=== PATIENT | male | born 1960 | race Caucasian/White ===

== ENCOUNTER 2019-08-07 13:01 | Outpatient (CLI) | payer BC ==
[2019-08-07 13:53] LABS: #Basophils 0.1 thou/uL (0.0-0.2); #Eosinphils 0.2 thou/uL (0.0-0.7); #Lymphocytes 1.9 thou/uL (1.20-3.40); #Monocytes 0.8 thou/uL (0.11-0.59); #Neutrophils 5.1 thou/uL (1.40-6.50); %Basophils 0.7 % (0.0-1.0); %Eosinophils 2.5 % (0.0-10.0); %Lymphocytes 23.6 % (21.0-51.0); %Monocytes 9.6 % (0.0-10.0); %Neutrophils 63.5 % (42.0-75.0); Hemoglobin 16.1 g/dL (14.0-18.0); Mean Corpuscular HGB CONC 33.7 g/dL (32.0-36.0); Mean Corpuscular Hemoglobin 31.6 pg (27.0-31.0); Mean Corpuscular Volume 93.7 fL (78.0-98.0); Mean Platelet Volume 7.5 fL (7.4-10.4); Platelet Count 319 thou/uL (130-400); RBC Distribution Width 11.4 % (11.5-14.5); White Blood Cell (WBC) Count 8.1 thou/uL (4.8-10.8)
[2019-08-07 14:15] LABS: ALT (SGPT) 18 U/L (8-55); AST (SGOT) 18 U/L (5-34); Albumin 4.8 g/dL (3.5-5.0); Alkaline Phosphatase 67 U/L (40-150); Anion Gap 13 mmol/L (10-20); BUN (Urea Nitrogen) 14 mg/dL (8.4-25.7); Bilirubin, Total 0.7 mg/dL (0.2-1.2); Calc. Creatinine Clearance 0 mL/min (70-130); Calcium 9.6 mg/dL (7.8-10.44); Carbon Dioxide 24 mmol/L (22-29); Chloride 105 mmol/L (98-107); Estimated GFR-MDRD 83; Globulin 2.7 g/dL (2.4-3.5); Glucose 92 mg/dL (70-105); Potassium 4.3 mmol/L (3.5-5.1); Protein, Total 7.5 g/dL (6.0-8.3); Sodium 138 mmol/L (136-145)
== END 2019-08-07 13:02 | disposition home or self-care (01) ==
LOC: LABBT 13:01
PROVIDERS: ATTEND Internal Medicine Cardiovascular Disease
DX: Z01.812 Encounter for preprocedural laboratory examination (principal); R94.39 Abnormal result of other cardiovascular function study
CPT/HCPCS: 80053; 85025

== ENCOUNTER 2019-08-10 06:06 | Inpatient (IN) | payer BC ==
[2019-08-10 07:09] LABS: Cardiac Risk 3.4 (Less than 4.5)
[2019-08-10] MEDS ORDERED: Diazepam 5 MG TAB ONE (07:12)
[2019-08-10] MEDS ORDERED: Diazepam 5 MG TAB PO SCH (07:15)
[2019-08-10] MEDS ORDERED: Lidocaine 1% (PF) 30 ML VIAL ONE (07:53)
[2019-08-10] MEDS ORDERED: Midazolam HCl 2 mg/2 ml Vial ONE (08:16)
[2019-08-10] MEDS ORDERED: Fentanyl 100 MCG/2 ML VIAL ONE (08:16)
[2019-08-10] MEDS ORDERED: Metoprolol Tartrate 5 MG/5 ML VIAL ONE ×2 (08:40→08:55)
[2019-08-10] MEDS ORDERED: Nitroglycerin 2% Ointment 1 INCH/1 GM Packet ONE (09:20)
[2019-08-10] MEDS ORDERED: Acetaminophen/Codeine 30-300mg Tablet PO PRN ×2 (09:52)
[2019-08-10] MEDS ORDERED: Nitroglycerin 0.4 MG TAB (25 Tab Bottle) SL PRN (09:52)
[2019-08-10] MEDS ORDERED: Sodium Chloride 0.9% 1,000 ML IV SCH (10:00)
[2019-08-10] MEDS ORDERED: Aspirin Chewable 81 MG TAB PO SCH (10:15)
[2019-08-10] MEDS ORDERED: Famotidine 20 MG TAB PO PRN (10:20)
[2019-08-10] MEDS ORDERED: Acetaminophen 325 MG TAB PO PRN (10:22)
[2019-08-10] MEDS ORDERED: Nitroglycerin 2% Ointment 1 INCH/1 GM Packet TOP SCH (10:30)
[2019-08-10] MEDS ORDERED: Iopamidol 370 76% 100 ML VIAL ONE (10:33)
[2019-08-10 12:21] VITALS: BMI 27.6
[2019-08-10] MEDS: Nitroglycerin 2% Ointment 1 INCH/1 GM Packet TOP SCH ×2 (14:08→20:55)
[2019-08-10] MEDS ORDERED: Communication Order-Pharmacy FS SCH (16:58)
[2019-08-10] MEDS: Metoprolol Tartrate 25 MG TAB PO SCH (20:54)
[2019-08-10] MEDS ORDERED: Rosuvastatin 20 MG TAB PO SCH (21:00)
[2019-08-10] MEDS ORDERED: Enoxaparin Sodium 30 MG/0.3 ML SYRINGE SC SCH (22:00)
--- NOTE | 2019-08-10 23:03 | CON ---
DATE OF CONSULTATION: HISTORY OF PRESENT ILLNESS: This is a 58-year-old gentleman with no significant medical history, who had noticed occasionally some tightness in his chest when he was cutting the grass and then typically could rest for a few minutes and then go cut the grass again. This has occurred in the last 4-6 weeks. He has no history of hypertension or dyslipidemia. He had family history only of hypertension. He is a nonsmoker. He underwent stress testing which was abnormal by Dr. Trivedi and then catheterization today demonstrated an occluded LAD that really did not visualize through collaterals. He had a subtotal lesion in a bifurcating diagonal that was not very large. He had about an 80% proximal circumflex prior to a large 1st OM that had another 90% lesion and then some distal disease and then a small distal circumflex. His right coronary artery had about a 70% stenosis in its midportion and about 40% to 50% stenosis in the posterolateral system after the PDA takeoff. Left ventricular systolic function appeared to be normal. SOCIAL HISTORY: The patient works at one of the local [employer]. He is . MEDICATIONS: Include Zantac for indigestion, which is what he thought was bothering him. PHYSICAL EXAMINATION: GENERAL: He is about 5 feet 6 inches. His weight is stated at 185, recorded on the bed scale today at 190. His blood pressure is 130/70, his heart rate is about 85. NECK: No carotid bruits. LUNGS: Clear to auscultation. CARDIAC: Mild resting tachycardia. No murmurs. ABDOMEN: Soft and nontender. EXTREMITIES: He has palpable pedal pulses and radial pulses bilaterally with no peripheral edema and he has a good Khang test on his nondominant left arm. Potential grafting sites include the OM1 distally, the right coronary artery distally. The LAD, diagonal, and distal circumflex will be examined and if large enough, will be grafted. Informed consent has been obtained. Job ID: [id number]
[2019-08-11] MEDS ORDERED: CEFAZOLIN 2 GM in Premix Bag 1 BAG IVPB SCH (02:15)
[2019-08-11] MEDS: Nitroglycerin 2% Ointment 1 INCH/1 GM Packet TOP SCH (05:27)
[2019-08-11] MEDS: Metoprolol Tartrate 25 MG TAB PO SCH (05:30)
[2019-08-11] MEDS ORDERED: Fentanyl 250 MCG/5 ML VIAL ONE (06:18)
[2019-08-11] MEDS ORDERED: Midazolam HCl 5 mg/5 ml Vial ONE (06:19)
[2019-08-11] MEDS ORDERED: Albumin 5% 500 ML ONE (06:34)
[2019-08-11] MEDS ORDERED: Heparin 10,000 UNITS/1 ML VIAL 30,000 UNITS in Sodium Chloride 0.9% 1,000 ML FS SCH (06:45)
[2019-08-11] MEDS ORDERED: Midazolam HCl 2 mg/2 ml Vial ONE (07:15)
[2019-08-11] MEDS ORDERED: Heparin 10,000 UNITS/1 ML VIAL ONE (08:09)
[2019-08-11] MEDS ORDERED: PHENYLEPHRINE-NS 100 MCG/ML 10 ML SYRINGE ONE ×2 (08:45→22:36)
[2019-08-11] MEDS ORDERED: Phenylephrine HCL 10 MG/ML VIAL ONE (08:46)
[2019-08-11] MEDS ORDERED: Multivit, Therapeutic 1 TAB PO SCH (09:00)
[2019-08-11] MEDS ORDERED: Aspirin Chewable 81 MG TAB PO SCH (09:00)
[2019-08-11] MEDS ORDERED: Bisacodyl 10 MG SUPP PR PRN (12:24)
[2019-08-11] MEDS ORDERED: Guaifenesin DM 100-10/5 ML UDCUP PO PRN (12:24)
[2019-08-11] MEDS ORDERED: HYDROcodone/Acetaminophen 5/325 mg Tablet PO PRN (12:24)
[2019-08-11] MEDS ORDERED: Morphine 2 MG/ML SYRINGE SLOW IVP PRN (12:24)
[2019-08-11] MEDS ORDERED: Promethazine HCl 25 MG/ML VIAL IM PRN (12:24)
[2019-08-11] MEDS ORDERED: DOPamine 400 MG/D5W 250 ML 250 ML IVPB PRN (12:24)
[2019-08-11] MEDS ORDERED: Norepinephrine 8 MG/0.9% NS 250 ML IVPB PRN (12:24)
[2019-08-11] MEDS ORDERED: hydrALAZINE 20 MG/ML VIAL SLOW IVP PRN (12:24)
[2019-08-11] MEDS ORDERED: Mag-Al 1200 mg/1200 mg/30 ML UDCUP PO PRN (12:24)
[2019-08-11] MEDS ORDERED: Acetaminophen 325 MG TAB PO PRN (12:24)
[2019-08-11] MEDS ORDERED: Hetastarch 6% 500 ML 500 ML IVPB PRN (12:24)
[2019-08-11] MEDS ORDERED: Potassium Chloride 20 MEQ/100 ML PREMIX BAG IVPB PRN (12:24)
[2019-08-11] MEDS ORDERED: Post-Op Insulin Drip Protocol IVPB ONE (12:24)
[2019-08-11] MEDS ORDERED: niCARdipine 25 MG in Sodium Chloride 0.9% 250 ML 240 ML IVPB PRN (12:24)
[2019-08-11] MEDS ORDERED: Nitroglycerin 50 MG/250 ML BOT 250 ML IVPB PRN (12:24)
[2019-08-11] MEDS ORDERED: Bisacodyl 5 MG TAB PO PRN (12:24)
[2019-08-11] MEDS ORDERED: Magnesium 2 GM/50 ML 2 GM in Premix Bag 1 BAG IVPB SCH (12:30)
[2019-08-11] MEDS ORDERED: Insulin Regular 300 UNITS/3 ML VIAL SC PRN (12:36)
[2019-08-11] MEDS ORDERED: Dextrose 5% in Water 1,000 ML IV PRN (12:36)
[2019-08-11] MEDS ORDERED: Dextrose 50% Abboject 50 ML SYRINGE SLOW IVP PRN (12:36)
[2019-08-11] MEDS ORDERED: HUMULIN R 100 UNITS in Sodium Chloride 0.9% 100 ML IVPB SCH (12:36)
[2019-08-11] MEDS ORDERED: Insulin Regular 300 UNITS/3 ML VIAL ONE (12:48)
--- NOTE | 2019-08-11 13:00 | RAD ---
XR Chest 1 View Portable History: Open-heart surgery Comparison: None. Findings: Patient intubated endotracheal tube tip just at level of clavicles in good position. Right subclavian central venous catheter tip sits at the right atrium. Small effusions. Mediastinal drains are in good position. No significant pneumothorax. Impression: Uncomplicated postoperative appearance.
[2019-08-11 13:03] LABS: Hemoglobin 13.5 g/dL (14.0-18.0); Mean Corpuscular HGB CONC 33.8 g/dL (32.0-36.0); Mean Corpuscular Hemoglobin 31.1 pg (27.0-31.0); Mean Corpuscular Volume 92.3 fL (78.0-98.0); Mean Platelet Volume 7.9 fL (7.4-10.4); Platelet Count 222 thou/uL (130-400); RBC Distribution Width 11.3 % (11.5-14.5); Red Blood Cell (RBC) Count 4.33 mill/uL (4.70-6.10); White Blood Cell (WBC) Count 24.6 thou/uL (4.8-10.8)
[2019-08-11 13:04] LABS: INR-International Normal Ratio 1.2; PTT 26.9 SEC (22.9-36.1); Prothrombin Time 15.6 SEC (12.0-14.7)
[2019-08-11 13:14] LABS: Actual Bicarbonate (HCO3a) 21.8 mEq/L (22-28); Base Excess (BEa) -4.3 mEq/L (-2.0 to +3.0); CO2 Tension 43.7 mmHg (35.0-45.0); Calcium, Ionized 1.05 mmol/L (1.12-1.30); Carboxyhemoglobin (COHb) 1.1 gm% (0.0-3.0); Hemoglobin (Hb) 14.2 g/dL (14.0-18.0); O2 Tension (PaO2) 71.8 mmHg (80.0-100.0); Potassium - ABG Lab 3.64 mmol/L (3.70-5.30); pH, Arterial 7.32 (7.35-7.45)
[2019-08-11 13:15] LABS: ALV-art Gradient 230.075 (0-20); Puncture Site ALINE
[2019-08-11 13:17] LABS: Band 11 % (5-11); Eosinophils 2 % (0-10); Lymphocytes 9 % (21-51); MDiff Complete? YES; Monocytes 9 % (0-10); Neutrophil 69 % (42-75); RBC Morphology Normal
[2019-08-11] MEDS: Lactated Ringer's 1,000 ML IV SCH (13:19)
[2019-08-11 13:20] LABS: Anion Gap 9 mmol/L (10-20); BUN (Urea Nitrogen) 12 mg/dL (8.4-25.7); Calc. Creatinine Clearance 117 mL/min (70-130); Calcium 7.8 mg/dL (7.8-10.44); Carbon Dioxide 24 mmol/L (22-29); Chloride 109 mmol/L (98-107); Estimated GFR-MDRD Greater than 90; Glucose 142 mg/dL (70-105); Potassium 4.1 mmol/L (3.5-5.1); Sodium 138 mmol/L (136-145)
[2019-08-11] MEDS: Famotidine/PF 20 mg/2ml Vial SLOW IVP SCH (13:20)
[2019-08-11] MEDS: Ketorolac Tromethamine 30 MG/ML VIAL IVP SCH ×2 (13:20→23:48)
[2019-08-11] MEDS: Ondansetron PF 4 MG/2 ML Vial IVP PRN ×2 (13:21→17:22)
[2019-08-11] MEDS: Fentanyl 100 MCG/2 ML VIAL SLOW IVP PRN ×6 (13:26→23:46)
[2019-08-11] MEDS: CEFAZOLIN 2 GM in Premix Bag 1 BAG IVPB SCH ×2 (13:45→21:33)
--- NOTE | 2019-08-11 14:51 | OP ---
DATE OF PROCEDURE: 08/11/2019 PREOPERATIVE DIAGNOSIS: Coronary artery disease. POSTOPERATIVE DIAGNOSIS: Coronary artery disease. PROCEDURE PERFORMED: Coronary artery bypass graft x5, large left internal mammary artery to a 1.5 to 2 mm left anterior descending artery, good left radial to obtuse marginal 1 done distally where it was 0.5 mm, saphenous vein graft good quality to a 1.25 mm diagonal, probably not a redo target, a sequential graft to the PDA 1.5 and the posterolateral 1.5. Distal circumflex was too small to bypass. [employer]: Tom Casillas MD TRANSFUSION: None. DESCRIPTION OF PROCEDURE: After adequate anesthesia had been obtained, the patient was prepped and draped. I initially harvested the left radial artery ensuring good collaterals, following which attention was then turned to doing an endovascular vein harvest of the left greater saphenous vein. Following preparation of the vein, I then performed a median sternotomy widely entering the right pleura. Left internal mammary artery was harvested entering the left pleura rather widely proximally. After heparinization, the mammary was divided distally and passed posterior to the remnant of thymus gland through the pleura. Aorta and right atrium were cannulated. Cardiopulmonary bypass was begun. Vessels were inspected. Aorta was cross-clamped, and after a liter of cold blood cardioplegia, the posterolateral was opened, end-to-side anastomosis completed, and then, the PDA opened and a [id number] anastomosis completed. Following this, the radial artery was anastomosed to the large OM1 distally. Finally, the saphenous vein was anastomosed to the small diagonal and the WHITMAN to LAD that did have disease. Following this, the cross-clamp was removed and the partial occluding clamp was placed. Two venous anastomoses were performed on the aortic root. Following which, the radial artery was anastomosed to the storey of the diagonal graft. The patient was then weaned from cardiopulmonary bypass. Cannula was removed and protamine was given systemically. Aortic cannulation site was secured with a Prolene. Mediastinal and bilateral pleural drains were placed. Sternum was then reapproximated with #7 interrupted wire using vancomycin paste on the sternal edges, platelet rich blood, and platelet poor plasma. Subcutaneous tissue and skin were closed in layers, and the patient is to be taken to the ICU in guarded condition. Job ID: [id number]
[2019-08-11 15:03] LABS: ALV-art Gradient 168.475 (0-20); Actual Bicarbonate (HCO3a) 19.3 mEq/L (22-28); Base Excess (BEa) -5.9 mEq/L (-2.0 to +3.0); CO2 Tension 36.9 mmHg (35.0-45.0); Calcium, Ionized 1.06 mmol/L (1.12-1.30); Carboxyhemoglobin (COHb) 1.2 gm% (0.0-3.0); Hemoglobin (Hb) 13.9 g/dL (14.0-18.0); O2 Tension (PaO2) 70.6 mmHg (80.0-100.0); Potassium - ABG Lab 3.82 mmol/L (3.70-5.30); Puncture Site ALINE; pH, Arterial 7.34 (7.35-7.45)
[2019-08-11 18:15] LABS: Hemoglobin 12.4 g/dL (14.0-18.0)
[2019-08-11 18:39] LABS: Potassium 4.1 mmol/L (3.5-5.1)
[2019-08-11] MEDS: HYDROcodone/Acetaminophen 5/325 mg Tablet PO PRN (19:14)
[2019-08-11] MEDS: Rosuvastatin 20 MG TAB PO SCH (20:54)
[2019-08-11] MEDS ORDERED: Aminocaproic Acid 5 GM/20 ML VIAL ONE (22:36)
[2019-08-11] MEDS ORDERED: Papaverine 60 MG/2 ML VIAL ONE (22:36)
[2019-08-11] MEDS ORDERED: PROPOFOL 200 MG/20 ML VIAL ONE (22:36)
[2019-08-11] MEDS ORDERED: Heparin 5,000 UNITS/ML VIAL ONE (22:36)
[2019-08-11] MEDS ORDERED: Thrombin 5000 UNITS/5 ML VIAL ONE (22:36)
[2019-08-11] MEDS ORDERED: Lidocaine 2% PF 100 mg/5 ml Syringe ONE (22:36)
[2019-08-11] MEDS ORDERED: Sodium Bicarb 50 MEQ/50 ML VIAL ONE (22:36)
[2019-08-11] MEDS ORDERED: DOPamine 400 MG/10 ML VIAL ONE (22:36)
[2019-08-11] MEDS ORDERED: Cardioplegic Soln 1,000 ML BAG ONE (22:36)
[2019-08-11] MEDS ORDERED: Potassium Chloride 60 MEQ/30 ML VIAL ONE (22:36)
[2019-08-11] MEDS ORDERED: Protamine Sulfate 250 MG/25 ML VIAL ONE (22:36)
[2019-08-11] MEDS ORDERED: Vecuronium 10 MG VIAL ONE (22:36)
[2019-08-11] MEDS ORDERED: Calcium Chloride 1 GM/10 ML Abboject SYRINGE ONE (22:36)
[2019-08-11] MEDS ORDERED: Heparin 30,000 units/30 ml VIAL ONE (22:36)
[2019-08-11] MEDS ORDERED: Glycopyrrolate 0.2 MG/ML 5 ML SYRINGE ONE (22:36)
[2019-08-12] MEDS: Lactated Ringer's 1,000 ML IV SCH (03:55)
[2019-08-12] MEDS: HYDROcodone/Acetaminophen 5/325 mg Tablet PO PRN ×4 (03:55→21:43)
[2019-08-12 04:24] LABS: #Lymphocytes 1.5 thou/uL (1.20-3.40); #Monocytes 2.1 thou/uL (0.11-0.59); #Neutrophils 11.9 thou/uL (1.40-6.50); %Basophils 0.1 % (0.0-1.0); %Eosinophils 0.1 % (0.0-10.0); %Lymphocytes 9.4 % (21.0-51.0); %Monocytes 13.3 % (0.0-10.0); %Neutrophils 77.1 % (42.0-75.0); Mean Corpuscular HGB CONC 34.1 g/dL (32.0-36.0); Mean Corpuscular Hemoglobin 32.5 pg (27.0-31.0); Mean Corpuscular Volume 95.1 fL (78.0-98.0); Mean Platelet Volume 7.9 fL (7.4-10.4); Platelet Count 211 thou/uL (130-400); RBC Distribution Width 11.5 % (11.5-14.5); White Blood Cell (WBC) Count 15.5 thou/uL (4.8-10.8)
[2019-08-12 04:43] LABS: Anion Gap 11 mmol/L (10-20); BUN (Urea Nitrogen) 13 mg/dL (8.4-25.7); Calc. Creatinine Clearance 117 mL/min (70-130); Calcium 7.7 mg/dL (7.8-10.44); Carbon Dioxide 23 mmol/L (22-29); Chloride 109 mmol/L (98-107); Estimated GFR-MDRD Greater than 90; Glucose 119 mg/dL (70-105); Potassium 4.2 mmol/L (3.5-5.1); Sodium 139 mmol/L (136-145)
[2019-08-12] MEDS: Fentanyl 100 MCG/2 ML VIAL SLOW IVP PRN ×4 (05:13→21:44)
[2019-08-12] MEDS: Ketorolac Tromethamine 30 MG/ML VIAL IVP SCH ×4 (05:49→23:40)
[2019-08-12] MEDS: CEFAZOLIN 2 GM in Premix Bag 1 BAG IVPB SCH (05:50)
[2019-08-12] MEDS: Ondansetron PF 4 MG/2 ML Vial IVP PRN (06:19)
[2019-08-12] MEDS: Aspirin 325 MG TAB PO SCH (08:30)
[2019-08-12] MEDS: Polyethylene Glycol 3350 17 GM Packet PO SCH (08:30)
[2019-08-12] MEDS: Famotidine/PF 20 mg/2ml Vial SLOW IVP SCH ×2 (08:30→20:54)
--- NOTE | 2019-08-12 08:47 | RAD ---
CHEST 1 VIEW PORTABLE: Date: 08/12/19 HISTORY: Postop open heart. COMPARISON: 08/11/19. FINDINGS: Endotracheal tube has been removed. Again noted is some bilateral vascular congestion and some fullne ss of the cardiomediastinal silhouette with small pleural effusions. No pneumothorax. IMPRESSION: Postoperative changes bilaterally. No pneumothorax or other acute process. Continue short-term follow -up. POS: [facility]
--- NOTE | 2019-08-12 10:37 | PRG ---
DATE OF SERVICE: 08/12/2019 SUBJECTIVE: Mr. Gallegos is doing very well. He is sitting up in bed, no complaints. He underwent successful bypass surgery yesterday. OBJECTIVE: VITAL SIGNS: Blood pressure 106/70, pulse 82. LUNGS: Clear. CARDIAC: Normal S1, normal S2. ABDOMEN: Soft, nontender. ASSESSMENT: 1. Status post bypass surgery, doing well. 2. Hypercholesterolemia, LDL cholesterol was 101 on the , but he had been on the statins for a total of three days high dose statins. PLAN: 1. Continue current medical regimen including aspirin. 2. Beta blockers when feasible. 3. He is on low-dose beta blockers. 4. He is on Crestor. Job ID: [id number]
--- NOTE | 2019-08-12 15:14 | CON ---
DATE OF CONSULTATION: 08/12/2019 HISTORY OF PRESENT ILLNESS: Mr. Gallegos is a pleasant 58-year-old male. He underwent coronary artery bypass grafting x5 yesterday. He had a WHITMAN to his LAD, left radial to his obtuse marginal, saphenous vein graft to a diagonal, and with sequential graft to the posterior descending artery and the posterior lateral. His distal circumflex was apparently too small to bypass. He has done well and been extubated postoperatively, did have nausea this morning after receiving pain medications. PAST MEDICAL HISTORY: Remarkable for; 1. Carpal tunnel syndrome. 2. History of GI bleed in 1998. FAMILY HISTORY: Negative for lung disease in early age. SOCIAL HISTORY: Nonsmoker and nondrinker. In the past, he dipped. MEDICATIONS: Prior to admission, p.r.n. Zantac, which he was taking for chest discomfort that turned out to be cardiac. REVIEW OF SYSTEMS: 10 point review of systems completed, otherwise negative. PHYSICAL EXAMINATION: GENERAL: Mr. Gallegos is a pleasant 58-year-old male. VITAL SIGNS: Blood pressure 110/70, heart rate 82, respiratory rate is 18, and oximetry is 93. EYES: Pupils are equal sclerae is anicteric. Extraocular movements are full. NECK: Supple no lymphadenopathy lungs are clear. HEART: Regular rhythm. ABDOMEN: Soft. EXTREMITIES: Without clubbing, cyanosis, or edema. NEURO: Nonfocal. LABORATORY DATA: White count 15.5, hemoglobin 12.0, and platelets 211. Sodium 139, potassium 4.2, chloride 109, bicarb 23, BUN 11, and creatinine 0.82. A pH OF 7.34, CO2 of 36, and pO2 of 70 prior to extubation. IMPRESSION AND PLAN: Status post coronary artery bypass grafting, clinically stable. Hopefully, Marva will help with his nausea. We will be happy to follow the other physicians caring for him. Plan is to keep him in the ICU while he has a chest tube in. He had 530 mL out of his chest tube since surgery. This is a 70 minute consult, with greater than 50% of time spent on unit coordinating care. Job ID: [id number] MTDD
[2019-08-12] MEDS: Rosuvastatin 20 MG TAB PO SCH (20:54)
[2019-08-13 04:30] LABS: #Eosinphils 0.5 thou/uL (0.0-0.7); #Lymphocytes 1.8 thou/uL (1.20-3.40); #Monocytes 1.4 thou/uL (0.11-0.59); #Neutrophils 9.6 thou/uL (1.40-6.50); %Basophils 0.4 % (0.0-1.0); %Eosinophils 3.6 % (0.0-10.0); %Lymphocytes 13.8 % (21.0-51.0); %Monocytes 10.4 % (0.0-10.0); %Neutrophils 71.9 % (42.0-75.0); Mean Corpuscular HGB CONC 33.7 g/dL (32.0-36.0); Mean Corpuscular Volume 95.1 fL (78.0-98.0); Mean Platelet Volume 8.1 fL (7.4-10.4); Platelet Count 182 thou/uL (130-400); RBC Distribution Width 11.4 % (11.5-14.5); Red Blood Cell (RBC) Count 3.43 mill/uL (4.70-6.10); White Blood Cell (WBC) Count 13.4 thou/uL (4.8-10.8)
[2019-08-13] MEDS: HYDROcodone/Acetaminophen 5/325 mg Tablet PO PRN ×4 (04:34→23:27)
[2019-08-13] MEDS: Fentanyl 100 MCG/2 ML VIAL SLOW IVP PRN (04:35)
[2019-08-13 04:41] LABS: Anion Gap 9 mmol/L (10-20); BUN (Urea Nitrogen) 17 mg/dL (8.4-25.7); Calc. Creatinine Clearance 124 mL/min (70-130); Calcium 8.1 mg/dL (7.8-10.44); Carbon Dioxide 27 mmol/L (22-29); Chloride 104 mmol/L (98-107); Estimated GFR-MDRD Greater than 90; Glucose 99 mg/dL (70-105); Potassium 3.8 mmol/L (3.5-5.1); Sodium 136 mmol/L (136-145)
[2019-08-13] MEDS: Ketorolac Tromethamine 30 MG/ML VIAL IVP SCH (05:48)
[2019-08-13] MEDS: Famotidine/PF 20 mg/2ml Vial SLOW IVP SCH (07:50)
[2019-08-13] MEDS: Aspirin 325 MG TAB PO SCH (07:50)
[2019-08-13] MEDS: Polyethylene Glycol 3350 17 GM Packet PO SCH ×2 (07:50→08:23)
[2019-08-13] MEDS ORDERED: Ibuprofen 800 MG TAB PO SCH (08:00)
[2019-08-13] MEDS ORDERED: Guaifenesin DM 100-10/5 ML UDCUP PO PRN (08:08)
[2019-08-13] MEDS ORDERED: Mineral Oil ENEMA PR PRN (08:08)
[2019-08-13] MEDS ORDERED: Acetaminophen 325 MG TAB PO PRN (08:08)
[2019-08-13] MEDS ORDERED: Bisacodyl 10 MG SUPP PR PRN (08:08)
[2019-08-13] MEDS ORDERED: Mag-Al 1200 mg/1200 mg/30 ML UDCUP PO PRN (08:08)
[2019-08-13] MEDS ORDERED: Bisacodyl 5 MG TAB PO PRN (08:08)
[2019-08-13] MEDS ORDERED: Nitroglycerin 0.4 MG TAB (25 Tab Bottle) SL PRN (08:08)
[2019-08-13] MEDS ORDERED: Ondansetron PF 4 MG/2 ML Vial IVP PRN (08:08)
--- NOTE | 2019-08-13 08:14 | RAD ---
PORTABLE CHEST: COMPARISON: 08/12/2019 study. HISTORY: Postop open heart surgery. FINDINGS: Heart size is enlarged. There are postop sternotomy changes. Right subclavian line and chest tubes remain unchanged in position. Bibasilar atelectatic lung changes are present. IMPRESSION: Stable chest. POS: [facility]
[2019-08-13] MEDS: Potassium Chloride 10 MEQ TAB PO SCH (08:23)
[2019-08-13] MEDS: Famotidine 20 MG TAB PO SCH ×2 (08:23→20:16)
[2019-08-13] MEDS: Aspirin 325 mg Enteric Coated Tablet PO SCH (08:23)
[2019-08-13] MEDS: Furosemide 40 MG TAB PO SCH (08:27)
[2019-08-13] MEDS: Ibuprofen 800 MG TAB PO SCH ×2 (13:38→20:16)
--- NOTE | 2019-08-13 18:08 | PRG ---
DATE OF SERVICE: 08/13/2019 SUBJECTIVE: Mr. Gallegos doing well. He looks great. OBJECTIVE: GENERAL: He is in no distress. VITAL SIGNS: He is afebrile. Heart rate 79, respiratory rate 16, oximetry is 96 on 1 L, and blood pressure 136/73. LUNGS: Clear. HEART: Regular rhythm. ABDOMEN: Soft. LABORATORY DATA: White count is 13.4, hemoglobin is 11.0, and platelets 182. Electrolytes today are normal. IMPRESSION: Status post coronary artery bypass grafting. PLAN: He is clinically doing well. We will follow from a distance. Now, he is stable out of the critical care unit. Job ID: [id number]
[2019-08-13] MEDS: Rosuvastatin 20 MG TAB PO SCH (20:16)
[2019-08-14] MEDS: Ibuprofen 800 MG TAB PO SCH ×2 (06:00→15:14)
[2019-08-14] MEDS ORDERED: Potassium Chloride 20 MEQ TAB PO SCH (09:30)
[2019-08-14] MEDS: Aspirin 325 mg Enteric Coated Tablet PO SCH (10:15)
[2019-08-14] MEDS: Potassium Chloride 10 MEQ TAB PO SCH (10:15)
[2019-08-14] MEDS: Famotidine 20 MG TAB PO SCH ×2 (10:15→19:33)
[2019-08-14] MEDS: Metoprolol Tartrate 25 MG TAB PO SCH ×2 (10:16→19:33)
[2019-08-14] MEDS: Furosemide 40 MG TAB PO SCH (10:16)
[2019-08-14] MEDS: Polyethylene Glycol 3350 17 GM Packet PO SCH (10:16)
--- NOTE | 2019-08-14 10:20 | PRG ---
DATE OF SERVICE: 08/14/2019 SUBJECTIVE: Mr. Gallegos feels well. He is getting up and around. No complaints. OBJECTIVE: VITAL SIGNS: His blood pressure is 143/92, pulse 92 and regular. LUNGS: Clear. CARDIAC: Normal S1, normal S2. ASSESSMENT: Status post bypass surgery, doing well. PLAN: 1. He is on aspirin. 2. Beta lucas, low-dose. 3. He is on diuretic. 4. Statin. 5. Okay to me to go home to see us in the office in about a month. Job ID: [id number]
[2019-08-14] MEDS ORDERED: Rosuvastatin 20 MG TAB PO SCH (21:00)
[2019-08-15] MEDS: Ibuprofen 800 MG TAB PO SCH ×2 (00:07→06:22)
[2019-08-15 08:05] VITALS: TEMP 97.9
[2019-08-15] MEDS: Potassium Chloride 10 MEQ TAB PO SCH (08:51)
[2019-08-15] MEDS: Furosemide 40 MG TAB PO SCH (08:52)
[2019-08-15] MEDS: Polyethylene Glycol 3350 17 GM Packet PO SCH (08:52)
[2019-08-15] MEDS: Aspirin 325 mg Enteric Coated Tablet PO SCH (08:52)
[2019-08-15] MEDS: Metoprolol Tartrate 25 MG TAB PO SCH (08:52)
[2019-08-15] MEDS: Famotidine 20 MG TAB PO SCH (08:52)
[2019-08-15 10:03] VITALS: BP 144/85
--- NOTE | 2019-08-16 17:05 | EKG ---
Test Reason : POST CABG Blood Pressure : / mmHG Vent. Rate : 081 BPM Atrial Rate : 081 BPM P-R Int : 184 ms QRS Dur : 110 ms QT Int : 432 ms P-R-T Axes : 062 084 053 degrees QTc Int : 501 ms Normal sinus rhythm Right bundle branch block Abnormal ECG When compared with ECG of 02-MAY-1999 14:47, Right bundle branch block is now Present Confirmed by SUMAN RAMACHANDRAN (2) on 08/16/2019 5:05:09 PM Referred By: JUANPABLO Confirmed By:SUMAN RAMACHANDRAN
== END 2019-08-15 10:10 | disposition home or self-care (01) | DRG 234 ==
LOC: CCL 06:06 → 2NO 09:53 → CCU 08-11 07:12 → 2NO 08-13 09:11
PROVIDERS: ADMIT Internal Medicine Cardiovascular Disease; ATTEND Internal Medicine Cardiovascular Disease
PROC: 4A023N7 Measurement of Cardiac Sampling and Pressure, Left Heart, Percutaneous Approach (ICD-10-PCS; 2019-08-10)
PROC: B2111ZZ Fluoroscopy of Multiple Coronary Arteries using Low Osmolar Contrast (ICD-10-PCS; 2019-08-10)
PROC: 02100Z9 Bypass Coronary Artery, One Artery from Left Internal Mammary, Open Approach (ICD-10-PCS; principal; 2019-08-11)
PROC: 02100AW Bypass Coronary Artery, One Artery from Aorta with Autologous Arterial Tissue, Open Approach (ICD-10-PCS; 2019-08-11)
PROC: 03BC4ZZ Excision of Left Radial Artery, Percutaneous Endoscopic Approach (ICD-10-PCS; 2019-08-11)
PROC: 021209W Bypass Coronary Artery, Three Arteries from Aorta with Autologous Venous Tissue, Open Approach (ICD-10-PCS; 2019-08-11)
PROC: 06BQ4ZZ Excision of Left Saphenous Vein, Percutaneous Endoscopic Approach (ICD-10-PCS; 2019-08-11)
PROC: 5A1221Z Performance of Cardiac Output, Continuous (ICD-10-PCS; 2019-08-11)
DX: I25.10 Atherosclerotic heart disease of native coronary artery without angina pectoris (principal); R11.0 Nausea; E78.00 Pure hypercholesterolemia, unspecified; E78.5 Hyperlipidemia, unspecified; J30.2 Other seasonal allergic rhinitis; Z87.11 Personal history of peptic ulcer disease; Z87.891 Personal history of nicotine dependence
CPT/HCPCS: 36416; 36430; 71045; 76942; 80048; 80053; 80061; 82805; 85025; 85610; 85730; 86850; 86900; 86901; 93005; 93010; 93458; 93798; 94002; 94150; 99152; C1769; J0690; J1265; J1644; J1650; J1815; J1885; J2001; J2250; J2370; J2405; J2440; J2704; J2720; J3010; J3370; J3475; J3480; J7050; P9045; Q9967; S0017; S0028

== ENCOUNTER 2019-08-24 19:54 | Observation (INO) | payer BC ==
[~2019-08-24 19:54] MED LIST: ISOVUE-370 76%-LOCM 1 ML ONE
[2019-08-24 20:43] LABS: #Basophils 0.1 thou/uL (0.0-0.2); #Eosinphils 0.9 thou/uL (0.0-0.7); #Lymphocytes 2.9 thou/uL (1.20-3.40); #Monocytes 1.2 thou/uL (0.11-0.59); #Neutrophils 8.5 thou/uL (1.40-6.50); %Basophils 0.9 % (0.0-1.0); %Eosinophils 6.7 % (0.0-10.0); %Lymphocytes 21.3 % (21.0-51.0); %Neutrophils 62.1 % (42.0-75.0); Hemoglobin 13.4 g/dL (14.0-18.0); Mean Corpuscular HGB CONC 33.8 g/dL (32.0-36.0); Mean Corpuscular Volume 91.8 fL (78.0-98.0); Mean Platelet Volume 7.2 fL (7.4-10.4); Platelet Count 579 thou/uL (130-400); RBC Distribution Width 11.2 % (11.5-14.5); Red Blood Cell (RBC) Count 4.33 mill/uL (4.70-6.10); White Blood Cell (WBC) Count 13.7 thou/uL (4.8-10.8)
--- NOTE | 2019-08-24 20:44 | CT ---
CTA Angio Chest W WO Con History: Postoperative tachycardia. Comparison: Chest radiograph August 13, 2019 Findings: CT angiogram chest performed after the intravenous administration of contrast. 3-D renderin g provided. No proximal segmental pulmonary arterial filling defect. Extensive motion artifact. Evidence of recent mediastinal surgery. No postoperative fluid collections appreciated. No evidence f or mediastinitis. Small pericardial effusion. No significant pleural effusion. No evidence for pneumonia. Mild atelectasis lung bases. No acute osseous abnormality. No thoracic spine compression fracture. Impression: 1. No proximal segmental pulmonary arterial filling defect. 2. No acute inflammatory process in the chest. 3. Evidence of recent median sternotomy without fluid collection or mediastinitis.
[2019-08-24 20:58] LABS: ALT (SGPT) 50 U/L (8-55); AST (SGOT) 24 U/L (5-34); Albumin 4.2 g/dL (3.5-5.0); Alkaline Phosphatase 113 U/L (40-110); Anion Gap 14 mmol/L (10-20); BUN (Urea Nitrogen) 16 mg/dL (8.4-25.7); Bilirubin, Total 0.2 mg/dL (0.2-1.2); CK (CPK) 56 U/L (30-200); Calc. Creatinine Clearance 0 mL/min (70-130); Calcium 9.4 mg/dL (7.8-10.44); Carbon Dioxide 25 mmol/L (22-29); Chloride 105 mmol/L (98-107); Estimated GFR-MDRD 83; Globulin 3.4 g/dL (2.4-3.5); Glucose 119 mg/dL (70-105); Potassium 3.8 mmol/L (3.5-5.1); Protein, Total 7.6 g/dL (6.0-8.3); Sodium 140 mmol/L (136-145)
--- NOTE | 2019-08-24 20:59 | RAD ---
XR Chest 1 View Portable History: Palpitations after bypass surgery Comparison: CT angiogram same day Findings: Lungs are clear. No pneumothorax or effusion. Cardiac silhouette and mediastinal contours a re within normal limits. Multiple midline sternotomy wires. Impression: No acute intrathoracic abnormality.
[2019-08-24 21:05] LABS: Bilirubin Negative (Negative); Blood, Urine Negative (Negative); Clarity Clear (Clear); Glucose, Urine (Dipstick) Normal (Negative); Leukocyte Negative Leu/uL (Negative); Nitrite Negative (Negative); Protein, Urine (Dipstick) Negative (Neg-Trace); Urobilinogen Normal mg/dL (Less than 2)
[2019-08-24 23:56] LABS: Troponin I Less than 0.010 ng/mL (< 0.028)
[2019-08-25 02:56] LABS: Troponin I Less than 0.010 ng/mL (< 0.028)
[2019-08-25] MEDS ORDERED: HYDROcodone/Acetaminophen 5/325 mg Tablet PO PRN (03:24)
[2019-08-25] MEDS ORDERED: Senokot S 8.6-50 MG TAB PO PRN (03:24)
[2019-08-25] MEDS ORDERED: Acetaminophen 325 MG TAB PO PRN (03:24)
--- NOTE | 2019-08-25 04:33 | HP ---
PRIMARY CARE PHYSICIAN: Dr. Giraldo. CHIEF COMPLAINT: Palpitations. HISTORY OF PRESENT ILLNESS: Mr. Gallegos is a 59-year-old male, who reported to the emergency room on August 24 for palpitations and racing heart, which started approximately 30 minutes prior to arrival. He denied any chest pain or dyspnea. The patient had recently underwent a CABG x5 vessel on 08/11/2019 after being referred to Dr. Carroll by Dr. Mar after undergoing a cardiac cath which demonstrated an occluded LAD, subtotal lesion in the bifurcating diagonal, which is not very large, 80% proximal circumflex prior to large 1st OM that had another 90% lesion and some distal disease and a small distal circumflex. Right coronary artery has 70% stenosis in its midportion and about 40% to 50% stenosis in the posterolateral system after the PDA take off. The patient was discharged on the 15 of August. Reports that he was doing well, went to cardiac rehab today. States that he did not do anything strenuous. He walked the halls for about 6 minutes and then he went to work for about 4 hours, but denied doing anything strenuous. 30 minutes prior to coming to the ER, he noticed that he could feel his heart racing, could feel some palpitations. He reports this lasted about 2 hours. He said by the time I got the second IV in the ER, he said he could tell that it was starting to subside. The ER had called Dr. Carroll, who agreed with the dose of Lopressor IV which the patient was taking p.o. and had taken about 30 minutes prior to the event starting tonight. Before the Lopressor could be given, the patient's heart rate dropped into the 80s. The patient admitted to the observation unit for observation and cardiac monitoring. Prior to the CABG, the patient had no significant medical history. Denied any history of hypertension, dyslipidemia. Family history of only hypertension. He is a nonsmoker. PAST SURGICAL HISTORY: CABG 5-vessel on 08/11/2019. SOCIAL HISTORY: Lives at home with his family. Drinks one glass of wine per night. Denies any drug use or any smoking history. FAMILY HISTORY: Paternal history of cardiac disease. REVIEW OF SYSTEMS: The patient reports some palpitations and racing heartbeat. All other systems are reviewed and are negative unless mentioned in the HPI. PHYSICAL EXAMINATION: VITAL SIGNS: Blood pressure 142/86, pulse is 92, respirations are 22, temperature is 98.9, pO2 sats are 97% on room air. CONSTITUTIONAL: The patient is alert and oriented to person, place, and time. Appears pain-free, is in no distress. HEENT: Head is atraumatic and normocephalic. Eyes, pupils are equal, round, and reactive to light. Extraocular muscles are intact. NECK: Normal range of motion. Trachea is midline. RESPIRATORY: Chest breath sounds are clear. Chest movement is symmetrical. CARDIOVASCULAR: The patient is mildly tachycardic. Rhythm is regular. Heart sounds are normal. ABDOMEN: Nontender. Bowel sounds are heard. BACK: Normal range of motion. No tenderness. EXTREMITIES: Upper extremity; normal inspection and normal range of motion. Radial pulses are normal. Lower extremity; normal range of motion. Strength is normal. Pedal pulses are normal. NEUROLOGIC: He is oriented to person, place, and time. Speech is normal. SKIN: Warm, dry, and normal in color. There is a midsternal thoracotomy incision which is healing well without any evidence of infection. DIAGNOSTIC DATA: EKG; initial EKG beats per minute 145, sinus tach, complete right bundle-branch block. ST segments T-waves are normal. Monitor strip showed normal sinus rhythm at 87. Chest CTA negative. No evidence of any pulmonary emboli. Lab results were largely unremarkable. White blood cell count 13.7, hemoglobin 13.4, hematocrit 39.7, platelet count is 579. Troponin undetectable x1. PLAN AND ASSESSMENT: 1. Sinus tach spontaneously improved, initially was 145 on arrival to the ER, went down to 87, is currently around 92. We will trend troponins. Dr. Carroll was notified of the patient's arrival to the ER. Reports that he will see the patient in the morning. 2. Recent history of CABG x5 vessel. We will continue home medications. 3. Gastrointestinal and deep venous thrombosis prophylaxis has been started. 4. Hospital course is dependent on clinical findings. Job ID: [id number]
--- NOTE | 2019-08-25 08:54 | DIS ---
DATE OF ADMISSION: 08/24/2019 DATE OF DISCHARGE: 08/25/2019 HOSPITAL COURSE: This is a gentleman, who was placed in the observation in the ER for sinus tachycardia. The rate resolved on its own to about 80 to 90. The patient relates his metoprolol had been changed from 12.5 b.i.d. to 25 at bedtime at home, but otherwise no changes. A CT scan on admission showed no evidence of an infection. All grafts appeared to be patent on his CT scan. His white count was mildly elevated at 13,000. However, his leg and chest incisions were healing without evidence of infection and he had no dysuria. He will be discharged home to resume his medications, except I have asked him to increase his metoprolol tartrate to 25 b.i.d. He is to follow up with me in 2 days unless he is otherwise doing well, at which time, I will release him. Job ID: [id number]
[2019-08-25] MEDS ORDERED: Famotidine 20 MG TAB PO SCH (09:00)
== END 2019-08-25 08:03 | disposition home or self-care (01) ==
LOC: ERS 19:54 → ERHOLD 22:00
PROVIDERS: ADMIT Hospitalist; ATTEND Hospitalist
DX: R00.0 Tachycardia, unspecified (principal); Z79.82 Long term (current) use of aspirin; Z79.899 Other long term (current) drug therapy; Z95.1 Presence of aortocoronary bypass graft
CPT/HCPCS: 36415; 71045; 71275; 80053; 81003; 82550; 84484; 85025; 93005; 96360; 96361; Q9966